=== PATIENT | male | born 1975 | race African-American/Black ===

== ENCOUNTER 2018-12-02 08:38 | Observation (INO) ==
[2018-12-02 09:15] LABS: Basophils # 0.1 10*3/uL (0.0-0.2); Basophils % 0.8 % (0.0-0.8); Eosinophils % 0.2 % (0.00-10.9); Hemoglobin 14.7 GM/DL (14.0-18.0); Immature Granulocytes % 0.3 %; Immature Granulocytes Absolute 0.02 #; Lymphocytes # 1.7 10*3/uL (1.4-4.0); Lymphocytes % 28.2 % (21.2-54.2); Mean Corpuscular HGB Conc 33.4 GM/DL (32-36); Mean Corpuscular Volume 90.7 FL (87-102); Mean Platelet Volume 10.1 FL (9.6-12.0); Monocytes % 9.7 % (1.7-12.7); Neutrophils % 60.8 % (38.7-73.9); Platelet Count 208 T/CUMM (130-400); Red Blood Count 4.85 MC/CUMM (3.8-5.5); Red Cell Distribution Width 13.3 % (9.3-17.3)
[2018-12-02] MEDS ORDERED: ONDANSETRON 4 MG/2 ML VIAL IV STA (09:20)
[2018-12-02] MEDS ORDERED: ASPIRIN 325 MG TABLET PO STA ×2 (09:20→11:34)
[2018-12-02] MEDS ORDERED: hydrALAZINE 20 MG/1 ML VIAL IV STA (09:20)
[2018-12-02] MEDS ORDERED: NITROGLYCERIN 2% OINT 1 INCH/GM PACK TOP STA (09:20)
[2018-12-02] MEDS ORDERED: MORPHINE 4 MG/1 ML VIAL IV STA (09:20)
[2018-12-02 09:27] LABS: INR 0.9; Partial Thromboplastin Time 29.4 SECS (0-40)
[2018-12-02 09:34] LABS: Albumin 4.2 G/DL (3.4-5.0); Bilirubin,Total 0.6 MG/DL (0.2-1.0); Calcium 8.6 MG/DL (8.5-10.1); Osmolality,Calculated 275.5 MOS/KG (273-304); Total Protein 8.2 G/DL (6.4-8.3)
[2018-12-02 09:52] LABS: Barbiturates Screen,Urine Negative (Negative); Benzodiazepines Screen,Urine Negative (Negative); Cannabinoid Screen,Urine Negative (Negative); Opiate Screen,Urine Negative (Negative); Phencyclidine Screen,Urine Negative (Negative)
[2018-12-02 10:01] LABS: Apearance,Urine CLEAR (Clear); Bilirubin,Urine Negative (Negative); Blood, Urine Small mg/dL (Negative); Glucose,Urine (UA) Negative (Negative); Ketones,Urine 20 mg/dL (Negative); Mucus,Urine Occasional /LPF (Occasional); Nitrite,Urine Negative (Negative); Protein,Urine 30 MG/DL; RBC,Urine <1 /HPF (0-4); Urine Color Yellow (Yellow); Urine Specific Gravity 1.026 (1.001-1.035); Urine Urobilinogen < 2.0 EU/DL (0.2-1.0); WBC,Urine 1 /HPF (0-6)
[2018-12-02] MEDS ORDERED: MAGNESIUM HYDROXIDE SUSP 30 ML UDCUP PO PRN (11:34)
[2018-12-02] MEDS ORDERED: MAGNESIUM SULF RIDER 2 GM in PREMIX 1 EACH IV PRN (11:34)
[2018-12-02] MEDS ORDERED: MAGNESIUM SULF RIDER 4 GM in PREMIX 1 EACH IV PRN (11:34)
[2018-12-02] MEDS ORDERED: ALUM/MAG/SIMETH/LIDO VISC 1:1 30 ML BOTTLE PO PRN (11:34)
[2018-12-02] MEDS ORDERED: LORazepam 1 MG TABLET PO PRN (12:22)
[2018-12-02] MEDS ORDERED: hydrALAZINE 20 MG/1 ML VIAL IV PRN (12:24)
[2018-12-02] MEDS ORDERED: FLUCONAZOLE 200 MG TABLET PO STA (12:32)
[2018-12-02] MEDS: HEPARIN 5,000 UNIT/1 ML VIAL SUBCUT SCH ×2 (14:00→21:30)
[2018-12-02] MEDS: MORPHINE 4 MG/1 ML VIAL IV PRN ×3 (15:42→23:21)
[2018-12-02] MEDS ORDERED: NICOTINE 21 MG/24 HR PATCH TRANSDERM ONE (15:49)
[2018-12-02] MEDS: CARVEDILOL 6.25 MG TABLET PO SCH (16:12)
[2018-12-02] MEDS ORDERED: hydrALAZINE 25 MG TABLET PO ONE (16:43)
[2018-12-02] MEDS ORDERED: ASPIRIN CHEW 81 MG TABLET PO ONE (18:24)
[2018-12-02] MEDS ORDERED: NITROGLYCERIN 2% OINT 1 INCH/GM PACK TOP ONE (18:25)
[2018-12-02] MEDS ORDERED: niCARdipine INJ 25 MG in SODIUM CHLORIDE 0.9% 240 ML IV PRN (18:32)
[2018-12-02] MEDS: POTASSIUM CHLORIDE 20 MEQ TABLET PO PRN ×2 (19:03→21:30)
[2018-12-02] MEDS: ACETAMINOPHEN 325 MG TABLET PO PRN (19:45)
[2018-12-02] MEDS: ATORVASTATIN 20 MG TABLET PO SCH (21:30)
[2018-12-02] MEDS: FAMOTIDINE 20 MG TABLET PO SCH (21:30)
[2018-12-02] MEDS: hydrALAZINE 25 MG TABLET PO SCH (21:30)
[2018-12-02] MEDS ORDERED: KETOROLAC 30 MG/1 ML VIAL IV ONE (23:34)
[2018-12-03] MEDS: MORPHINE 4 MG/1 ML VIAL IV PRN ×2 (01:55→06:06)
[2018-12-03] MEDS: POTASSIUM CHLORIDE 20 MEQ TABLET PO PRN ×2 (01:55→06:06)
[2018-12-03] MEDS ORDERED: diphenhydrAMINE CAP 50 MG CAPSULE PO ONE (02:25)
[2018-12-03] MEDS: HEPARIN 5,000 UNIT/1 ML VIAL SUBCUT SCH ×3 (05:33→20:22)
[2018-12-03 05:40] LABS: Risk Ratio 2.48; VLDL CHOLESTEROL 16.2 MG/DL
[2018-12-03] MEDS: MULTIVITAMIN (CENTRUM) TABLET PO SCH (08:56)
[2018-12-03] MEDS: FOLIC ACID 1 MG TABLET PO SCH (08:56)
[2018-12-03] MEDS: CARVEDILOL 6.25 MG TABLET PO SCH ×2 (08:56→16:54)
[2018-12-03] MEDS: ASPIRIN EC 81 MG TABLET PO SCH (08:56)
[2018-12-03] MEDS: hydrALAZINE 25 MG TABLET PO SCH ×3 (08:56→20:21)
[2018-12-03] MEDS: NICOTINE 21 MG/24 HR PATCH TRANSDERM SCH (08:56)
[2018-12-03] MEDS: FAMOTIDINE 20 MG TABLET PO SCH ×2 (08:57→20:21)
[2018-12-03] MEDS: THIAMINE 100 MG TABLET PO SCH (08:57)
[2018-12-03] MEDS: NITROGLYCERIN 2% OINT 1 INCH/GM PACK TOP SCH ×2 (09:21→20:22)
[2018-12-03] MEDS: ONDANSETRON 4 MG/2 ML VIAL IV PRN (10:51)
[2018-12-03] MEDS: ACETAMINOPHEN 325 MG TABLET PO PRN (15:11)
[2018-12-03] MEDS ORDERED: diphenhydrAMINE CAP 25 MG CAPSULE PO ONE (19:48)
[2018-12-03] MEDS: ATORVASTATIN 20 MG TABLET PO SCH (20:21)
[2018-12-04] MEDS: ACETAMINOPHEN 325 MG TABLET PO PRN (02:56)
[2018-12-04] MEDS: HEPARIN 5,000 UNIT/1 ML VIAL SUBCUT SCH (04:26)
[2018-12-04 07:16] VITALS: BP 141/87
[2018-12-04] MEDS: NICOTINE 21 MG/24 HR PATCH TRANSDERM SCH (09:07)
[2018-12-04] MEDS: MULTIVITAMIN (CENTRUM) TABLET PO SCH (09:08)
[2018-12-04] MEDS: FAMOTIDINE 20 MG TABLET PO SCH (09:08)
[2018-12-04] MEDS: FOLIC ACID 1 MG TABLET PO SCH (09:08)
[2018-12-04] MEDS: THIAMINE 100 MG TABLET PO SCH (09:08)
[2018-12-04] MEDS: CARVEDILOL 6.25 MG TABLET PO SCH (09:08)
[2018-12-04] MEDS: hydrALAZINE 25 MG TABLET PO SCH (09:08)
[2018-12-04] MEDS: ASPIRIN EC 81 MG TABLET PO SCH (09:08)
[2018-12-04] MEDS: NITROGLYCERIN 2% OINT 1 INCH/GM PACK TOP SCH (09:08)
[2018-12-04] MEDS: ONDANSETRON 4 MG/2 ML VIAL IV PRN (10:27)
== END 2018-12-04 10:58 | disposition home or self-care (01) ==
LOC: N.EDINP 08:38 → N.ED 08:38 → SUATTDRO 11:35 → MERGE 11:35 → N.2E 12:59 → N.CC 19:36 → N.2E 12-03 10:34
PROVIDERS: ADMIT Nurse Practitioner; ATTEND Internal Medicine

== ENCOUNTER 2019-07-19 16:23 | Inpatient (IN) ==
[2019-07-19] MEDS ORDERED: ASPIRIN 325 MG TABLET ONE (16:40)
[2019-07-19] MEDS ORDERED: NITROGLYCERIN 2% OINT 1 INCH/GM PACK TOP STA (16:41)
[2019-07-19] MEDS ORDERED: ASPIRIN 325 MG TABLET PO STA (16:41)
[2019-07-19] MEDS ORDERED: ONDANSETRON 4 MG/2 ML VIAL IV STA (16:41)
[2019-07-19] MEDS: NITROGLYCERIN SL 0.4 MG TABLET SL PRN ×2 (16:44→18:14)
[2019-07-19 16:55] LABS: Basophils % 0.8 % (0.0-0.8); Eosinophils % 0.2 % (0.00-10.9); Hematocrit 42.5 VOL% (42.0-52.0); Hemoglobin 14.4 GM/DL (14.0-18.0); Immature Granulocytes % 0.2 %; Immature Granulocytes Absolute 0.01 #; Lymphocytes # 1.4 10*3/uL (1.4-4.0); Lymphocytes % 27.3 % (21.2-54.2); Mean Corpuscular HGB Conc 33.9 GM/DL (32-36); Mean Corpuscular Volume 91.2 FL (87-102); Mean Platelet Volume 10.2 FL (9.6-12.0); Monocytes % 9.9 % (1.7-12.7); Neutrophils % 61.6 % (38.7-73.9); Platelet Count 182 T/CUMM (130-400); Red Blood Count 4.66 MC/CUMM (3.8-5.5); Red Cell Distribution Width 13.6 % (9.3-17.3); White Blood Count 5.2 T/CUMM (4-12)
[2019-07-19 17:17] LABS: Albumin 4.2 G/DL (3.4-5.0); Bilirubin,Total 0.5 MG/DL (0.2-1.0); Calcium 8.8 MG/DL (8.5-10.1); Osmolality,Calculated 279.3 MOS/KG (273-304); Total Protein 8.6 G/DL (6.4-8.3)
[2019-07-19 17:18] LABS: Apearance,Urine CLEAR (Clear); Bilirubin,Urine Negative (Negative); Blood, Urine Negative (Negative); Glucose,Urine (UA) Negative (Negative); Hyaline Casts,Urine 3 /LPF (0-3); Ketones,Urine 20 mg/dL (Negative); Mucus,Urine Occasional /LPF (Occasional); Nitrite,Urine Negative (Negative); Protein,Urine 30 MG/DL; Squamous Epithelial Cell,Urine Occasional /HPF (0-10); Urine Color Yellow (Yellow); Urine Specific Gravity 1.021 (1.001-1.035); Urine Urobilinogen < 2.0 EU/DL (0.2-1.0)
[2019-07-19] MEDS ORDERED: amLODIPine 5 MG TABLET PO STA (17:42)
[2019-07-19 18:07] LABS: Barbiturates Screen,Urine Negative (Negative); Benzodiazepines Screen,Urine Negative (Negative); Cannabinoid Screen,Urine Negative (Negative); Opiate Screen,Urine Negative (Negative); Phencyclidine Screen,Urine Negative (Negative)
[2019-07-19] MEDS ORDERED: cloNIDine 0.1 MG TABLET PO PRN (18:55)
[2019-07-19] MEDS ORDERED: ONDANSETRON 4 MG/2 ML VIAL IV PRN (20:18)
[2019-07-19] MEDS ORDERED: INFLUENZA VIRUS VACCINE 0.5 ML SYRINGE IM ONE (20:23)
[2019-07-19] MEDS ORDERED: ENOXAPARIN 40 MG/0.4 ML SYRINGE SUBCUT SCH (21:00)
[2019-07-19] MEDS: CHLORTHALIDONE 25 MG TABLET PO SCH (22:31)
[2019-07-19] MEDS: carvediloL 12.5 MG TABLET PO SCH (22:31)
[2019-07-19] MEDS: ALUMINUM/MAGNES/SIMETH MAX STR 30 ML UDCUP PO SCH (22:32)
[2019-07-19] MEDS: MAGNESIUM SULF RIDER 4 GM in PREMIX 1 EACH IV SCH (22:36)
[2019-07-20] MEDS: ALUMINUM/MAGNES/SIMETH MAX STR 30 ML UDCUP PO SCH ×4 (01:40→13:38)
[2019-07-20] MEDS ORDERED: ACETAMINOPHEN 500 MG TABLET PO ONE (02:43)
[2019-07-20] MEDS: MAGNESIUM SULF RIDER 4 GM in PREMIX 1 EACH IV SCH (03:36)
[2019-07-20 06:47] LABS: Osmolality,Calculated 270.8 MOS/KG (273-304)
[2019-07-20] MEDS ORDERED: amLODIPine 10 MG TABLET PO SCH (09:00)
[2019-07-20] MEDS ORDERED: PANTOPRAZOLE 40 MG TABLET PO SCH (09:00)
[2019-07-20] MEDS: CHLORTHALIDONE 25 MG TABLET PO SCH (09:34)
[2019-07-20] MEDS: carvediloL 12.5 MG TABLET PO SCH (09:37)
[2019-07-20] MEDS ORDERED: POTASSIUM CHLORIDE 20 MEQ TABLET PO ONE (12:35)
[2019-07-20 12:47] VITALS: BP 157/108
== END 2019-07-20 15:00 | disposition home or self-care (01) | DRG 305 ==
LOC: N.ED 16:23 → N.EDINP 18:55 → N.TELES 19:48
PROVIDERS: ADMIT Internal Medicine; ATTEND Internal Medicine

== ENCOUNTER 2020-08-08 22:38 | Observation (INO) ==
[2020-08-08] MEDS ORDERED: NITROGLYCERIN 2% OINT 1 INCH/GM PACK TOP STA (23:10)
[2020-08-08] MEDS ORDERED: ONDANSETRON 4 MG/2 ML VIAL IV STA (23:10)
[2020-08-08] MEDS ORDERED: ASPIRIN 325 MG TABLET PO STA (23:10)
[2020-08-08] MEDS ORDERED: ALUM/MAG/SIMETH/LIDO VISC 1:1 30 ML BOTTLE PO STA (23:10)
[2020-08-08] MEDS ORDERED: MORPHINE 4 MG/1 ML VIAL IV STA (23:10)
[2020-08-08] MEDS ORDERED: hydrALAZINE 20 MG/1 ML VIAL IV STA (23:12)
[2020-08-08 23:14] LABS: Basophils # 0.1 10*3/uL (0.0-0.2); Basophils % 1.2 % (0.0-0.8); Eosinophils % 0.2 % (0.00-10.9); Hematocrit 43.6 VOL% (42.0-52.0); Hemoglobin 15.3 GM/DL (14.0-18.0); Immature Granulocytes % 0.7 %; Immature Granulocytes Absolute 0.04 #; Lymphocytes # 1.6 10*3/uL (1.4-4.0); Lymphocytes % 28.8 % (21.2-54.2); Mean Corpuscular HGB Conc 35.1 GM/DL (32-36); Mean Corpuscular Volume 87.9 FL (87-102); Monocytes % 8.7 % (1.7-12.7); Neutrophils % 60.4 % (38.7-73.9); Platelet Count 240 T/CUMM (130-400); Red Blood Count 4.96 MC/CUMM (3.8-5.5); White Blood Count 5.7 T/CUMM (4-12)
[2020-08-08] MEDS ORDERED: PROMETHAZINE 25 MG/1 ML VIAL IM STA (23:48)
[2020-08-08 23:51] LABS: PT Patient Result 10.3 SECS (9.8-11.9); Partial Thromboplastin Time 28.2 SECS (23.9-33.8)
[2020-08-09] LABS: Alanine Aminotransferase 27 U/L (16-61); Albumin 4.1 G/DL (3.4-5.0); Alkaline Phosphatase 96 U/L (45-117); Aspartate Amino Transferase 20 U/L (0-37); Bilirubin,Total < 0.39 MG/DL (0.2-1.0); Blood Urea Nitrogen 11 MG/DL (7-18); Calcium 8.7 MG/DL (8.5-10.1); Carbon Dioxide 22 MMOL/L (21-32); Estimated Glom Filtration Rate 143 ML/MIN; Glucose 87 MG/DL (74-106); Osmolality,Calculated 274.5 MOS/KG (273-304); Potassium 3.6 MMOL/L (3.5-5.1); Sodium 139 MMOL/L (136-145); Total Protein 8.4 G/DL (6.4-8.3)
[2020-08-09] MEDS ORDERED: hydrALAZINE 20 MG/1 ML VIAL IV STA
[2020-08-09 00:12] LABS: Bilirubin,Urine Negative (Negative); Blood, Urine Negative (Negative); Glucose,Urine (UA) Negative (Negative); Ketones,Urine 5 mg/dL (Negative); Mucus,Urine Many /LPF (Occasional); Nitrite,Urine Negative (Negative); Protein,Urine 100 MG/DL; RBC,Urine 4 /HPF (0-4); Squamous Epithelial Cell,Urine Occasional /HPF (0-10); Urine Appearance CLEAR (Clear); Urine Color Yellow (Yellow); Urine Specific Gravity 1.029 (1.001-1.035); Urine Urobilinogen < 2.0 EU/DL (0.2-1.0); WBC,Urine 4 /HPF (0-6)
[2020-08-09] MEDS ORDERED: MAGNESIUM SULF RIDER 2 GM in PREMIX 1 EACH IV STA (00:12)
[2020-08-09 00:13] LABS: Barbiturates Screen,Urine Negative (Negative); Benzodiazepines Screen,Urine Negative (Negative); Cannabinoid Screen,Urine Negative (Negative); Opiate Screen,Urine Positive (Negative); Phencyclidine Screen,Urine Negative (Negative)
[2020-08-09] MEDS ORDERED: MORPHINE 4 MG/1 ML VIAL IV STA (00:15)
[2020-08-09] MEDS ORDERED: METOPROLOL TARTRATE 5 MG/5 ML VIAL IV STA (00:26)
[2020-08-09] MEDS ORDERED: DEXTROSE 50% 25 GM/50 ML VIAL IV PRN (01:11)
[2020-08-09] MEDS ORDERED: GLUCAGON 1 MG VIAL IM PRN (01:11)
[2020-08-09] MEDS ORDERED: hydrALAZINE 20 MG/1 ML VIAL IV PRN (01:15)
[2020-08-09] MEDS: MORPHINE 4 MG/1 ML VIAL IV PRN ×4 (02:18→22:05)
[2020-08-09 04:49] LABS: Basophils # 0.1 10*3/uL (0.0-0.2); Basophils % 1.2 % (0.0-0.8); Eosinophils % 0.6 % (0.00-10.9); Hematocrit 42.3 VOL% (42.0-52.0); Hemoglobin 14.8 GM/DL (14.0-18.0); Immature Granulocytes % 0.4 %; Immature Granulocytes Absolute 0.02 #; Lymphocytes # 1.9 10*3/uL (1.4-4.0); Lymphocytes % 37.8 % (21.2-54.2); Mean Corpuscular Volume 88.3 FL (87-102); Mean Platelet Volume 10.3 FL (9.6-12.0); Monocytes % 12.7 % (1.7-12.7); Neutrophils % 47.3 % (38.7-73.9); Platelet Count 213 T/CUMM (130-400); Red Blood Count 4.79 MC/CUMM (3.8-5.5)
[2020-08-09 05:18] LABS: Calcium 8.6 MG/DL (8.5-10.1); Osmolality,Calculated 272.8 MOS/KG (273-304); Potassium 3.6 MMOL/L (3.5-5.1); Risk Ratio 2.69; VLDL CHOLESTEROL 13.4 MG/DL
[2020-08-09] MEDS: ENOXAPARIN 40 MG/0.4 ML SYRINGE SUBCUT SCH (06:32)
[2020-08-09] MEDS: PANTOPRAZOLE 40 MG TABLET PO SCH (09:35)
[2020-08-09] MEDS: carvediloL 12.5 MG TABLET PO SCH ×2 (09:35→17:49)
[2020-08-09] MEDS: CHLORTHALIDONE 25 MG TABLET PO SCH (09:35)
[2020-08-09] MEDS: ASPIRIN EC 81 MG TABLET PO SCH (09:35)
[2020-08-09] MEDS: amLODIPine 10 MG TABLET PO SCH (09:35)
[2020-08-09] MEDS ORDERED: diphenhydrAMINE CAP 25 MG CAPSULE PO ONE (12:03)
[2020-08-09] MEDS: predniSONE 20 MG TABLET PO SCH ×2 (12:39→18:45)
[2020-08-09] MEDS ORDERED: diphenhydrAMINE 50 MG/1 ML VIAL IV ONE (18:00)
[2020-08-10] MEDS ORDERED: NICOTINE 21 MG/24 HR PATCH TRANSDERM PRN (00:28)
[2020-08-10] MEDS: predniSONE 20 MG TABLET PO SCH ×3 (00:50→12:17)
[2020-08-10] MEDS: MORPHINE 4 MG/1 ML VIAL IV PRN ×4 (01:59→21:54)
[2020-08-10 05:46] LABS: Hematocrit 46.2 VOL% (42.0-52.0); Hemoglobin 16.3 GM/DL (14.0-18.0); Immature Granulocytes % 0.3 %; Immature Granulocytes Absolute 0.02 #; Lymphocytes # 0.7 10*3/uL (1.4-4.0); Lymphocytes % 12.7 % (21.2-54.2); Mean Corpuscular HGB Conc 35.3 GM/DL (32-36); Mean Corpuscular Volume 86.8 FL (87-102); Mean Platelet Volume 10.5 FL (9.6-12.0); Monocytes % 2.8 % (1.7-12.7); Neutrophils % 84.2 % (38.7-73.9); Platelet Count 257 T/CUMM (130-400); Red Blood Count 5.32 MC/CUMM (3.8-5.5); Red Cell Distribution Width 13.2 % (9.3-17.3); White Blood Count 5.7 T/CUMM (4-12)
[2020-08-10 06:12] LABS: Calcium 9.1 MG/DL (8.5-10.1); Osmolality,Calculated 265.7 MOS/KG (273-304)
[2020-08-10] MEDS: ENOXAPARIN 40 MG/0.4 ML SYRINGE SUBCUT SCH (06:36)
[2020-08-10] MEDS: CHLORTHALIDONE 25 MG TABLET PO SCH (08:35)
[2020-08-10] MEDS: amLODIPine 10 MG TABLET PO SCH (08:35)
[2020-08-10] MEDS: carvediloL 12.5 MG TABLET PO SCH (08:36)
[2020-08-10] MEDS: ASPIRIN EC 81 MG TABLET PO SCH (08:36)
[2020-08-10] MEDS: PANTOPRAZOLE 40 MG TABLET PO SCH (08:36)
[2020-08-10] MEDS: carvediloL 25 MG TABLET PO SCH (16:10)
[2020-08-10] MEDS ORDERED: ACETAMINOPHEN 325 MG TABLET PO PRN (18:51)
[2020-08-11] MEDS: MORPHINE 4 MG/1 ML VIAL IV PRN (03:07)
[2020-08-11 05:45] LABS: Basophils % 0.2 % (0.0-0.8); Eosinophils % 0.2 % (0.00-10.9); Hematocrit 46.7 VOL% (42.0-52.0); Hemoglobin 15.5 GM/DL (14.0-18.0); Immature Granulocytes % 0.4 %; Immature Granulocytes Absolute 0.04 #; Lymphocytes # 2.3 10*3/uL (1.4-4.0); Lymphocytes % 23.5 % (21.2-54.2); Mean Corpuscular HGB Conc 33.2 GM/DL (32-36); Mean Corpuscular Volume 91.2 FL (87-102); Mean Platelet Volume 10.7 FL (9.6-12.0); Monocytes % 9.5 % (1.7-12.7); Neutrophils % 66.2 % (38.7-73.9); Platelet Count 231 T/CUMM (130-400); Red Blood Count 5.12 MC/CUMM (3.8-5.5); Red Cell Distribution Width 13.2 % (9.3-17.3); White Blood Count 9.7 T/CUMM (4-12)
[2020-08-11] MEDS: ENOXAPARIN 40 MG/0.4 ML SYRINGE SUBCUT SCH (05:55)
[2020-08-11 06:06] LABS: Platelet Estimate Adequate
[2020-08-11 06:10] LABS: Calcium 8.7 MG/DL (8.5-10.1); Potassium 3.5 MMOL/L (3.5-5.1)
[2020-08-11] MEDS ORDERED: ALUM/MAG/SIMETH/LIDO VISC 1:1 30 ML BOTTLE PO ONE (09:33)
[2020-08-11] MEDS: ASPIRIN EC 81 MG TABLET PO SCH (10:54)
[2020-08-11] MEDS: CHLORTHALIDONE 25 MG TABLET PO SCH (10:55)
[2020-08-11] MEDS: PANTOPRAZOLE 40 MG TABLET PO SCH (10:55)
[2020-08-11] MEDS: amLODIPine 10 MG TABLET PO SCH (10:55)
[2020-08-11] MEDS: carvediloL 25 MG TABLET PO SCH (10:55)
[2020-08-11 12:31] VITALS: BP 131/79
== END 2020-08-11 16:16 | disposition home or self-care (01) ==
LOC: EDBD → EDUNIT# → N.ED 22:38 → N.EDINP 22:38 → N.TELES 08-09 18:15
PROVIDERS: ADMIT Internal Medicine; ATTEND Internal Medicine

== ENCOUNTER 2021-01-31 11:39 | Observation (INO) ==
[2021-01-31 12:08] LABS: Basophils # 0.1 10*3/uL (0.0-0.2); Basophils % 0.9 % (0.0-0.8); Hematocrit 44.8 VOL% (42.0-52.0); Hemoglobin 15.2 GM/DL (14.0-18.0); Immature Granulocytes % 0.4 %; Immature Granulocytes Absolute 0.02 #; Lymphocytes # 1.1 10*3/uL (1.4-4.0); Lymphocytes % 20.1 % (21.2-54.2); Mean Corpuscular HGB Conc 33.9 GM/DL (32-36); Mean Corpuscular Volume 91.4 FL (87-102); Mean Platelet Volume 10.1 FL (9.6-12.0); Monocytes % 10.2 % (1.7-12.7); Neutrophils % 68.4 % (38.7-73.9); Platelet Count 198 T/CUMM (130-400); Red Cell Distribution Width 13.6 % (9.3-17.3); White Blood Count 5.5 T/CUMM (4-12)
[2021-01-31 12:19] LABS: Albumin 4.4 G/DL (3.4-5.0); Bilirubin,Total 0.5 MG/DL (0.20-1.00); Calcium 8.8 MG/DL (8.5-10.1); Osmolality,Calculated 274.5 MOS/KG (273-304); Potassium 3.9 MMOL/L (3.5-5.1); Total Protein 8.5 G/DL (6.4-8.2)
[2021-01-31] MEDS ORDERED: ASPIRIN 325 MG TABLET PO STA (12:29)
[2021-01-31] MEDS: NITROGLYCERIN SL 0.4 MG TABLET SL PRN ×2 (12:43→17:23)
[2021-01-31] MEDS ORDERED: hydrALAZINE 20 MG/1 ML VIAL IV PRN (14:38)
[2021-01-31] MEDS ORDERED: GLUCAGON 1 MG VIAL IM PRN (14:38)
[2021-01-31] MEDS ORDERED: ALUM/MAG/SIMETH/LIDO VISC 1:1 30 ML BOTTLE PO PRN (14:38)
[2021-01-31] MEDS ORDERED: DEXTROSE 50% 25 GM/50 ML VIAL IV PRN (14:38)
[2021-01-31 14:58] LABS: Barbiturates Screen,Urine Negative (Negative); Benzodiazepines Screen,Urine Negative (Negative); Cannabinoid Screen,Urine Negative (Negative); Opiate Screen,Urine Negative (Negative); Phencyclidine Screen,Urine Negative (Negative)
[2021-01-31] MEDS ORDERED: ENOXAPARIN 40 MG/0.4 ML SYRINGE SUBCUT SCH (15:00)
[2021-01-31] MEDS ORDERED: ONDANSETRON 4 MG/2 ML VIAL IV PRN (15:46)
[2021-01-31] MEDS: MORPHINE 2 MG/1 ML SYRINGE IV PRN (21:19)
[2021-01-31] MEDS ORDERED: NICOTINE 21 MG/24 HR PATCH TRANSDERM ONE (23:29)
[2021-01-31] MEDS: NICOTINE 21 MG/24 HR PATCH TRANSDERM SCH (23:32)
[2021-02-01] MEDS: MORPHINE 2 MG/1 ML SYRINGE IV PRN (02:40)
[2021-02-01 04:32] LABS: Basophils % 0.6 % (0.0-0.8); Eosinophils # 0.1 10*3/uL (0.0-0.87); Eosinophils % 2.4 % (0.00-10.9); Hematocrit 43.5 VOL% (42.0-52.0); Hemoglobin 14.8 GM/DL (14.0-18.0); Lymphocytes # 1.5 10*3/uL (1.4-4.0); Lymphocytes % 45.3 % (21.2-54.2); Mean Corpuscular Volume 91.6 FL (87-102); Mean Platelet Volume 10.7 FL (9.6-12.0); Monocytes % 19.9 % (1.7-12.7); Neutrophils % 31.8 % (38.7-73.9); Platelet Count 196 T/CUMM (130-400); Red Blood Count 4.75 MC/CUMM (3.8-5.5); Red Cell Distribution Width 13.2 % (9.3-17.3); White Blood Count 3.3 T/CUMM (4-12)
[2021-02-01 05:48] LABS: Eosinophils 3 % (0-10); Lymphocytes 50 % (20-55); Segmented Neutrophils 36 % (50-85); Total Cells Counted 100
[2021-02-01 05:50] LABS: Hypochromasia 1+; Microcytosis 1+; Platelet Estimate Adequate
[2021-02-01 05:51] LABS: Atypical Lymphocytes Few
[2021-02-01 07:51] LABS: Albumin 3.9 G/DL (3.4-5.0); Bilirubin,Total 0.6 MG/DL (0.20-1.00); Calcium 9.1 MG/DL (8.5-10.1); Osmolality,Calculated 263.4 MOS/KG (273-304); Potassium 3.8 MMOL/L (3.5-5.1); Risk Ratio 2.23; Total Protein 8.3 G/DL (6.4-8.2); VLDL Cholesterol 16.2 MG/DL
[2021-02-01] MEDS ORDERED: ASPIRIN EC 325 MG TABLET PO SCH (09:00)
[2021-02-01] MEDS ORDERED: PANTOPRAZOLE 40 MG TABLET PO SCH (09:00)
[2021-02-01] MEDS: NICOTINE 21 MG/24 HR PATCH TRANSDERM SCH (09:17)
[2021-02-01] MEDS ORDERED: AZITHROMYCIN 250 MG TABLET PO ONE (10:03)
[2021-02-01] MEDS ORDERED: amLODIPine 10 MG TABLET PO SCH (10:30)
[2021-02-01] MEDS ORDERED: cefTRIAXone 1,000 MG in SODIUM CHLORIDE 0.9% 100 ML IV SCH (10:30)
[2021-02-01 11:39] VITALS: BP 157/89
[2021-02-02] MEDS ORDERED: AZITHROMYCIN 250 MG TABLET PO SCH (09:00)
== END 2021-02-01 11:41 | disposition home or self-care (01) ==
LOC: EDBD → EDUNIT# → N.ED 11:39 → N.EDINP 11:39
PROVIDERS: ADMIT Internal Medicine; ATTEND Internal Medicine

== ENCOUNTER 2021-07-13 12:36 | Inpatient (IN) ==
[2021-07-13] MEDS ORDERED: DILTIAZEM 50 MG/10 ML VIAL IV STA ×2 (13:25→15:00)
[2021-07-13 13:31] LABS: Basophils # 0.1 10*3/uL (0.0-0.2); Basophils % 1.2 % (0.0-0.8); Eosinophils % 0.4 % (0.00-10.9); Hematocrit 47.2 VOL% (42.0-52.0); Hemoglobin 16.3 GM/DL (14.0-18.0); Immature Granulocytes % 0.2 %; Immature Granulocytes Absolute 0.01 #; Lymphocytes # 2.8 10*3/uL (1.4-4.0); Lymphocytes % 53.5 % (21.2-54.2); Mean Corpuscular HGB Conc 34.5 GM/DL (32-36); Mean Corpuscular Volume 88.7 FL (87-102); Mean Platelet Volume 9.9 FL (9.6-12.0); Monocytes % 9.7 % (1.7-12.7); Platelet Count 321 T/CUMM (130-400); Red Blood Count 5.32 MC/CUMM (3.8-5.5); Red Cell Distribution Width 12.6 % (9.3-17.3); White Blood Count 5.1 T/CUMM (4-12)
[2021-07-13] MEDS: DILTIAZEM INJ 100 MG in SODIUM CHLORIDE 0.9% 100 ML IV SCH ×2 (13:32→20:15)
[2021-07-13 14:11] LABS: Albumin 4.7 G/DL (3.4-5.0); Bilirubin,Total 0.4 MG/DL (0.20-1.00); Calcium 9.3 MG/DL (8.5-10.1); Osmolality,Calculated 286.8 MOS/KG (273-304); Potassium 3.5 MMOL/L (3.5-5.1); Thyroid Stimulating Hormone 1.66 uIU/ml (0.358-3.74); Total Protein 9.1 G/DL (6.4-8.2)
[2021-07-13 14:17] LABS: Barbiturates Screen,Urine Negative (Negative); Benzodiazepines Screen,Urine Negative (Negative); Cannabinoid Screen,Urine Negative (Negative); Opiate Screen,Urine Negative (Negative); Phencyclidine Screen,Urine Negative (Negative)
[2021-07-13 14:54] LABS: INR 0.9; PT Patient Result 10.5 SECS (10.5-12.0); Partial Thromboplastin Time 27.4 SECS (23.8-32.1)
[2021-07-13] MEDS ORDERED: THIAMINE INJ 100 MG, FOLIC ACID INJ 1 MG, MAGNESIUM SULF INJ 2 GM, MULTIVITAMIN INJ 10 ... IV ONE (15:14)
[2021-07-13] MEDS ORDERED: LORazepam 2 MG/1 ML VIAL IV STA (15:14)
[2021-07-13] MEDS ORDERED: CALCIUM CARBONATE CHEW 500 MG TABLET PO PRN (15:15)
[2021-07-13] MEDS ORDERED: SIMETHICONE CHEW 125 MG TABLET PO PRN (15:15)
[2021-07-13] MEDS ORDERED: ONDANSETRON 4 MG/2 ML VIAL IV PRN (15:15)
[2021-07-13] MEDS ORDERED: DOCUSATE SODIUM 100 MG CAPSULE PO PRN (15:15)
[2021-07-13] MEDS ORDERED: GLUCAGON 1 MG VIAL IM PRN (15:15)
[2021-07-13] MEDS ORDERED: ONDANSETRON 4 MG/2 ML VIAL IV STA (15:23)
[2021-07-13] MEDS ORDERED: LABETALOL 20 MG/4 ML SYRINGE IV STA ×2 (15:23→15:25)
[2021-07-13] MEDS ORDERED: DEXTROSE 50% 25 GM/50 ML SYRINGE IV PRN (15:27)
[2021-07-13] MEDS ORDERED: THIAMINE INJ 100 MG, FOLIC ACID INJ 1 MG, MAGNESIUM SULF INJ 2 GM, MULTIVITAMIN INJ 10 ... IV SCH (15:30)
[2021-07-13] MEDS: PANTOPRAZOLE 40 MG TABLET PO SCH (16:24)
[2021-07-13] MEDS: ENOXAPARIN 80 MG/0.8 ML SYRINGE SUBCUT SCH (16:24)
[2021-07-13 19:14] LABS: Lymphocytes 61 % (20-55); Microcytosis 1+; Platelet Estimate Normal; Reactive Lymphocytes 2+; Segmented Neutrophils 33 % (50-85); Total Cells Counted 100
[2021-07-13] MEDS ORDERED: chlordiazePOXIDE 25 MG CAPSULE PO SCH (21:00)
[2021-07-13] MEDS: LORazepam 1 MG TABLET PO SCH (21:15)
[2021-07-13] MEDS: hydrALAZINE 20 MG/1 ML VIAL IV PRN (21:20)
[2021-07-14] MEDS: hydrALAZINE 20 MG/1 ML VIAL IV PRN ×2 (00:44→23:09)
[2021-07-14] MEDS: ALPRAZolam 0.5 MG TABLET PO PRN ×2 (01:14→20:31)
[2021-07-14] MEDS: ACETAMINOPHEN 325 MG TABLET PO PRN (03:29)
[2021-07-14] MEDS: ENOXAPARIN 80 MG/0.8 ML SYRINGE SUBCUT SCH (03:31)
[2021-07-14 05:02] LABS: Basophils % 0.8 % (0.0-0.8); Eosinophils # 0.1 10*3/uL (0.0-0.87); Eosinophils % 1.4 % (0.00-10.9); Hemoglobin 14.2 GM/DL (14.0-18.0); Immature Granulocytes % 0.4 %; Immature Granulocytes Absolute 0.02 #; Lymphocytes # 1.6 10*3/uL (1.4-4.0); Lymphocytes % 32.2 % (21.2-54.2); Mean Corpuscular HGB Conc 33.8 GM/DL (32-36); Mean Corpuscular Volume 90.7 FL (87-102); Mean Platelet Volume 10.3 FL (9.6-12.0); Monocytes % 15.3 % (1.7-12.7); Neutrophils % 49.9 % (38.7-73.9); Platelet Count 245 T/CUMM (130-400); Red Blood Count 4.63 MC/CUMM (3.8-5.5); Red Cell Distribution Width 12.6 % (9.3-17.3); White Blood Count 4.9 T/CUMM (4-12)
[2021-07-14 05:31] LABS: Albumin 3.6 G/DL (3.4-5.0); Bilirubin,Total 1.2 MG/DL (0.20-1.00); Calcium 8.5 MG/DL (8.5-10.1); Osmolality,Calculated 275.7 MOS/KG (273-304); Potassium 3.1 MMOL/L (3.5-5.1); Risk Ratio 3.48; Total Protein 7.4 G/DL (6.4-8.2); VLDL Cholesterol 69.6 MG/DL
[2021-07-14] MEDS ORDERED: LORazepam 2 MG/1 ML VIAL IV ONE ×2 (05:49)
[2021-07-14] MEDS: LORazepam 1 MG TABLET PO SCH ×3 (08:06→20:31)
[2021-07-14] MEDS: PANTOPRAZOLE 40 MG TABLET PO SCH (08:06)
[2021-07-14] MEDS: DILTIAZEM INJ 100 MG in SODIUM CHLORIDE 0.9% 100 ML IV SCH ×2 (08:09→15:57)
[2021-07-14] MEDS ORDERED: POTASSIUM CHLORIDE 20 MEQ TABLET PO ONE (09:41)
[2021-07-14] MEDS: NICOTINE 21 MG/24 HR PATCH TRANSDERM SCH (11:13)
[2021-07-14] MEDS: METOPROLOL TARTRATE 25 MG TABLET PO SCH ×2 (14:28→20:31)
[2021-07-14] MEDS ORDERED: THIAMINE INJ 100 MG, FOLIC ACID INJ 1 MG, MAGNESIUM SULF INJ 2 GM, MULTIVITAMIN INJ 10 ... IV SCH (16:00)
[2021-07-14] MEDS ORDERED: amLODIPine 10 MG TABLET PO ONE (17:55)
[2021-07-15] MEDS ORDERED: HALOPERIDOL 5 MG/ML AMP IM ONE (00:25)
[2021-07-15] MEDS: ALPRAZolam 0.5 MG TABLET PO PRN (01:38)
[2021-07-15] MEDS: ACETAMINOPHEN 325 MG TABLET PO PRN (01:39)
[2021-07-15 06:37] LABS: Calcium 8.9 MG/DL (8.5-10.1); Osmolality,Calculated 275.7 MOS/KG (273-304); Potassium 3.7 MMOL/L (3.5-5.1)
[2021-07-15 08:23] VITALS: BP 159/89
[2021-07-15] MEDS: METOPROLOL TARTRATE 25 MG TABLET PO SCH (08:52)
[2021-07-15] MEDS: PANTOPRAZOLE 40 MG TABLET PO SCH (08:52)
[2021-07-15] MEDS: NICOTINE 21 MG/24 HR PATCH TRANSDERM SCH (08:53)
[2021-07-15] MEDS ORDERED: amLODIPine 10 MG TABLET PO SCH (09:00)
[2021-07-15] MEDS ORDERED: ENOXAPARIN 40 MG/0.4 ML SYRINGE SUBCUT SCH (09:00)
[2021-07-15] MEDS: LORazepam 1 MG TABLET PO SCH (11:34)
== END 2021-07-15 13:08 | disposition home or self-care (01) | DRG 305 ==
LOC: N.ED 12:36 → N.TELES 15:15 → SUATTDRO 15:15 → N.TELES 22:00
PROVIDERS: ADMIT Internal Medicine; ATTEND Hospitalist

== ENCOUNTER 2021-10-29 09:04 | Inpatient (IN) ==
[2021-10-29] MEDS ORDERED: SODIUM CHLORIDE 0.9% 1,000 ML IV STA (09:24)
[2021-10-29] MEDS ORDERED: PANTOPRAZOLE 40 MG VIAL IV STA (09:24)
[2021-10-29] MEDS ORDERED: LABETALOL 20 MG/4 ML SYRINGE IV STA (09:57)
[2021-10-29 10:22] LABS: Basophils % 0.1 % (0.0-0.8); Hematocrit 42.9 VOL% (42.0-52.0); Hemoglobin 14.3 GM/DL (14.0-18.0); Immature Granulocytes % 0.6 %; Immature Granulocytes Absolute 0.04 #; Lymphocytes % 13.7 % (21.2-54.2); Mean Corpuscular HGB Conc 33.3 GM/DL (32-36); Mean Corpuscular Volume 89.9 FL (87-102); Mean Platelet Volume 10.2 FL (9.6-12.0); Monocytes % 10.5 % (1.7-12.7); Neutrophils % 75.1 % (38.7-73.9); Platelet Count 248 T/CUMM (130-400); Red Blood Count 4.77 MC/CUMM (3.8-5.5); Red Cell Distribution Width 14.3 % (9.3-17.3); White Blood Count 7.2 T/CUMM (4-12)
[2021-10-29 10:32] LABS: PT Patient Result 10.9 SECS (10.5-12.0)
[2021-10-29] MEDS ORDERED: HYDROmorphone 1 MG/1 ML SYRINGE IV STA ×3 (10:46→13:30)
[2021-10-29] MEDS ORDERED: ONDANSETRON 4 MG/2 ML VIAL IV ONE (10:46)
[2021-10-29 10:48] LABS: Albumin 4.1 G/DL (3.4-5.0); Bilirubin,Total 0.5 MG/DL (0.20-1.00); Calcium 9.1 MG/DL (8.5-10.1); Osmolality,Calculated 275.5 MOS/KG (273-304); Potassium 4.3 MMOL/L (3.5-5.1); Total Protein 8.6 G/DL (6.4-8.2)
[2021-10-29] MEDS ORDERED: methylPREDNISolone SOD SUC 125 MG/2 ML VIAL ONE (11:11)
[2021-10-29] MEDS ORDERED: diphenhydrAMINE 50 MG/1 ML VIAL ONE (11:11)
[2021-10-29] MEDS ORDERED: FAMOTIDINE 20 MG/2 ML VIAL IV ONE (11:13)
[2021-10-29] MEDS ORDERED: methylPREDNISolone SOD SUC 125 MG/2 ML VIAL IV STA (11:18)
[2021-10-29] MEDS ORDERED: FAMOTIDINE 20 MG/2 ML VIAL IV STA (11:19)
[2021-10-29] MEDS ORDERED: diphenhydrAMINE 50 MG/1 ML VIAL IV STA (11:19)
[2021-10-29] MEDS ORDERED: hydrALAZINE 20 MG/1 ML VIAL IV STA (11:51)
[2021-10-29] MEDS ORDERED: LABETALOL 100 MG/20 ML VIAL IV STA (12:38)
[2021-10-29] MEDS ORDERED: hydrALAZINE 20 MG/1 ML VIAL IV PRN (13:54)
[2021-10-29] MEDS ORDERED: SODIUM CHLORIDE 0.9% 1,000 ML IV SCH (14:00)
[2021-10-29] MEDS: metroNIDAZOLE INJ 500 MG/100 ML PREMIX IV SCH ×2 (15:00→23:06)
[2021-10-29] MEDS: LEVOFLOXACIN INJ 750 MG/150 ML PREMIX IV SCH (15:00)
[2021-10-29] MEDS: HYDROmorphone 1 MG/1 ML SYRINGE IV PRN ×4 (15:21→23:05)
[2021-10-29] MEDS: PANTOPRAZOLE 40 MG VIAL IV SCH (15:49)
[2021-10-29 16:09] LABS: Hematocrit 42.4 VOL% (42.0-52.0); Hemoglobin 14.1 GM/DL (14.0-18.0)
[2021-10-29] MEDS: ONDANSETRON 4 MG/2 ML VIAL IV PRN ×2 (17:10→23:05)
[2021-10-29] MEDS: LORazepam 2 MG/1 ML VIAL IV PRN (18:22)
[2021-10-29] MEDS: METOPROLOL TARTRATE 25 MG TABLET PO SCH (20:17)
[2021-10-30] MEDS: HYDROmorphone 1 MG/1 ML SYRINGE IV PRN ×5 (02:26→21:19)
[2021-10-30 05:15] LABS: Basophils % 0.1 % (0.0-0.8); Hematocrit 37.8 VOL% (42.0-52.0); Hemoglobin 12.7 GM/DL (14.0-18.0); Immature Granulocytes % 0.8 %; Immature Granulocytes Absolute 0.06 #; Lymphocytes # 0.8 10*3/uL (1.4-4.0); Lymphocytes % 10.9 % (21.2-54.2); Mean Corpuscular HGB Conc 33.6 GM/DL (32-36); Mean Corpuscular Volume 89.4 FL (87-102); Mean Platelet Volume 10.2 FL (9.6-12.0); Monocytes % 10.6 % (1.7-12.7); Neutrophils % 77.6 % (38.7-73.9); Platelet Count 230 T/CUMM (130-400); Red Blood Count 4.23 MC/CUMM (3.8-5.5); Red Cell Distribution Width 14.1 % (9.3-17.3); White Blood Count 7.5 T/CUMM (4-12)
[2021-10-30 05:36] LABS: Albumin 3.1 G/DL (3.4-5.0); Bilirubin,Total 0.7 MG/DL (0.20-1.00); Calcium 8.4 MG/DL (8.5-10.1); Osmolality,Calculated 272.8 MOS/KG (273-304); Potassium 3.7 MMOL/L (3.5-5.1); Total Protein 6.9 G/DL (6.4-8.2)
[2021-10-30] MEDS: metroNIDAZOLE INJ 500 MG/100 ML PREMIX IV SCH ×3 (06:01→22:54)
[2021-10-30 06:34] LABS: Hepatitis B Core IgM Quant 0.07 Index; Hepatitis B Surface Ag Quant < 0.10 Index; Hepatitis B Surface Ag Result Non-Reactive (NonReactive); Hepatitis C Virus Ab Quant 0.07 Index; Hepatitis C Virus Ab Result Non-Reactive (NonReactive)
[2021-10-30] MEDS: LORazepam 2 MG/1 ML VIAL IV PRN (07:48)
[2021-10-30] MEDS: amLODIPine 10 MG TABLET PO SCH (08:06)
[2021-10-30] MEDS: METOPROLOL TARTRATE 25 MG TABLET PO SCH ×2 (08:06→20:29)
[2021-10-30] MEDS: PANTOPRAZOLE 40 MG VIAL IV SCH ×3 (08:06→20:29)
[2021-10-30] MEDS ORDERED: LABETALOL 20 MG/4 ML SYRINGE IV ONE (08:45)
[2021-10-30] MEDS ORDERED: LABETALOL 20 MG/4 ML SYRINGE IV PRN (08:46)
[2021-10-30 09:22] LABS: % Iron Saturation 37.3 % (18-50)
[2021-10-30] MEDS: DEXT 5% NACL 0.45% KCL 20 MEQ 20 MEQ/1,000 ML BAG IV SCH ×2 (09:38→22:53)
[2021-10-30] MEDS: diphenhydrAMINE CAP 25 MG CAPSULE PO PRN ×2 (11:43→19:48)
[2021-10-30] MEDS: ONDANSETRON 4 MG/2 ML VIAL IV PRN (12:49)
[2021-10-30] MEDS: LEVOFLOXACIN INJ 750 MG/150 ML PREMIX IV SCH (15:16)
[2021-10-31] MEDS: ONDANSETRON 4 MG/2 ML VIAL IV PRN ×3 (00:48→18:27)
[2021-10-31] MEDS: HYDROmorphone 1 MG/1 ML SYRINGE IV PRN ×6 (00:48→23:25)
[2021-10-31] MEDS: diphenhydrAMINE CAP 25 MG CAPSULE PO PRN ×4 (01:58→20:17)
[2021-10-31 04:30] LABS: Basophils % 0.2 % (0.0-0.8); Eosinophils % 0.4 % (0.00-10.9); Hematocrit 40.2 VOL% (42.0-52.0); Hemoglobin 13.3 GM/DL (14.0-18.0); Immature Granulocytes % 0.4 %; Immature Granulocytes Absolute 0.02 #; Lymphocytes # 1.5 10*3/uL (1.4-4.0); Lymphocytes % 28.2 % (21.2-54.2); Mean Corpuscular HGB Conc 33.1 GM/DL (32-36); Mean Corpuscular Volume 88.4 FL (87-102); Mean Platelet Volume 10.2 FL (9.6-12.0); Monocytes % 13.4 % (1.7-12.7); Neutrophils % 57.4 % (38.7-73.9); Platelet Count 238 T/CUMM (130-400); Red Blood Count 4.55 MC/CUMM (3.8-5.5); Red Cell Distribution Width 13.5 % (9.3-17.3); White Blood Count 5.4 T/CUMM (4-12)
[2021-10-31 05:03] LABS: Alanine Aminotransferase 407 U/L (16-61); Albumin 3.1 G/DL (3.4-5.0); Alkaline Phosphatase 102 U/L (45-117); Aspartate Amino Transferase 226 U/L (0-37); Bilirubin,Total < 0.39 MG/DL (0.20-1.00); Blood Urea Nitrogen 11 MG/DL (7-18); Calcium 8.4 MG/DL (8.5-10.1); Carbon Dioxide 27 MMOL/L (21-32); Estimated Glom Filtration Rate 112 ML/MIN; Glucose 96 MG/DL (74-106); Osmolality,Calculated 273.7 MOS/KG (273-304); Potassium 3.6 MMOL/L (3.5-5.1); Sodium 138 MMOL/L (136-145); Total Protein 6.7 G/DL (6.4-8.2)
[2021-10-31] MEDS: metroNIDAZOLE INJ 500 MG/100 ML PREMIX IV SCH ×3 (06:27→23:25)
[2021-10-31] MEDS ORDERED: LIDOCAINE 2% 5 ML VIAL ONE (09:29)
[2021-10-31] MEDS ORDERED: propofoL 200 MG/20 ML VIAL IV ONE (09:29)
[2021-10-31 10:06] VITALS: BP 169/112
[2021-10-31] MEDS: METOPROLOL TARTRATE 25 MG TABLET PO SCH ×2 (10:38→20:17)
[2021-10-31] MEDS: amLODIPine 10 MG TABLET PO SCH (10:38)
[2021-10-31] MEDS: PANTOPRAZOLE 40 MG VIAL IV SCH ×2 (10:39→20:16)
[2021-10-31] MEDS: LORazepam 2 MG/1 ML VIAL IV PRN (13:00)
[2021-10-31] MEDS: DEXT 5% NACL 0.45% KCL 20 MEQ 20 MEQ/1,000 ML BAG IV SCH (13:31)
[2021-10-31] MEDS: MECLIZINE 25 MG TABLET PO SCH ×3 (13:33→20:17)
[2021-10-31] MEDS: LEVOFLOXACIN INJ 750 MG/150 ML PREMIX IV SCH (16:19)
[2021-11-01] MEDS: DEXT 5% NACL 0.45% KCL 20 MEQ 20 MEQ/1,000 ML BAG IV SCH ×2 (02:19→14:28)
[2021-11-01] MEDS: HYDROmorphone 1 MG/1 ML SYRINGE IV PRN ×4 (02:20→11:39)
[2021-11-01 05:15] LABS: Basophils % 0.6 % (0.0-0.8); Eosinophils # 0.1 10*3/uL (0.0-0.87); Eosinophils % 2.5 % (0.00-10.9); Hematocrit 43.7 VOL% (42.0-52.0); Hemoglobin 14.6 GM/DL (14.0-18.0); Immature Granulocytes % 0.6 %; Immature Granulocytes Absolute 0.03 #; Mean Corpuscular HGB Conc 33.4 GM/DL (32-36); Mean Corpuscular Volume 88.8 FL (87-102); Monocytes % 13.3 % (1.7-12.7); Platelet Count 238 T/CUMM (130-400); Red Blood Count 4.92 MC/CUMM (3.8-5.5); Red Cell Distribution Width 13.6 % (9.3-17.3); White Blood Count 4.8 T/CUMM (4-12)
[2021-11-01] MEDS: ONDANSETRON 4 MG/2 ML VIAL IV PRN (05:29)
[2021-11-01 05:42] LABS: Alanine Aminotransferase 321 U/L (16-61); Albumin 3.1 G/DL (3.4-5.0); Alkaline Phosphatase 128 U/L (45-117); Aspartate Amino Transferase 97 U/L (0-37); Bilirubin,Total < 0.39 MG/DL (0.20-1.00); Blood Urea Nitrogen 13 MG/DL (7-18); Calcium 8.4 MG/DL (8.5-10.1); Carbon Dioxide 27 MMOL/L (21-32); Estimated Glom Filtration Rate 126 ML/MIN; Glucose 104 MG/DL (74-106); Osmolality,Calculated 274.7 MOS/KG (273-304); Potassium 3.5 MMOL/L (3.5-5.1); Sodium 138 MMOL/L (136-145)
[2021-11-01] MEDS: metroNIDAZOLE INJ 500 MG/100 ML PREMIX IV SCH ×3 (06:26→22:14)
[2021-11-01] MEDS: amLODIPine 10 MG TABLET PO SCH (08:35)
[2021-11-01] MEDS: METOPROLOL TARTRATE 25 MG TABLET PO SCH ×2 (08:35→20:16)
[2021-11-01] MEDS: PANTOPRAZOLE 40 MG VIAL IV SCH ×2 (08:36→20:16)
[2021-11-01] MEDS: METOCLOPRAMIDE 10 MG/2 ML VIAL IV SCH ×2 (12:20→17:26)
[2021-11-01] MEDS: LORazepam 2 MG/1 ML VIAL IV PRN ×3 (12:53→22:14)
[2021-11-01] MEDS: LEVOFLOXACIN INJ 750 MG/150 ML PREMIX IV SCH (14:28)
[2021-11-02] MEDS: METOCLOPRAMIDE 10 MG/2 ML VIAL IV SCH ×2 (00:13→05:57)
[2021-11-02] MEDS: DEXT 5% NACL 0.45% KCL 20 MEQ 20 MEQ/1,000 ML BAG IV SCH (03:10)
[2021-11-02 05:30] LABS: Basophils % 0.5 % (0.0-0.8); Eosinophils # 0.2 10*3/uL (0.0-0.87); Eosinophils % 3.5 % (0.00-10.9); Hematocrit 45.6 VOL% (42.0-52.0); Hemoglobin 15.4 GM/DL (14.0-18.0); Immature Granulocytes % 0.7 %; Immature Granulocytes Absolute 0.04 #; Lymphocytes # 2.2 10*3/uL (1.4-4.0); Lymphocytes % 39.9 % (21.2-54.2); Mean Corpuscular HGB Conc 33.8 GM/DL (32-36); Mean Corpuscular Volume 87.7 FL (87-102); Mean Platelet Volume 10.1 FL (9.6-12.0); Monocytes % 13.2 % (1.7-12.7); Neutrophils % 42.2 % (38.7-73.9); Platelet Count 260 T/CUMM (130-400); Red Cell Distribution Width 13.3 % (9.3-17.3); White Blood Count 5.5 T/CUMM (4-12)
[2021-11-02 05:49] LABS: Calcium 8.8 MG/DL (8.5-10.1); Osmolality,Calculated 272.8 MOS/KG (273-304)
[2021-11-02] MEDS: metroNIDAZOLE INJ 500 MG/100 ML PREMIX IV SCH (06:00)
[2021-11-02] MEDS: METOPROLOL TARTRATE 25 MG TABLET PO SCH (09:01)
[2021-11-02] MEDS: amLODIPine 10 MG TABLET PO SCH (09:01)
[2021-11-02] MEDS: PANTOPRAZOLE 40 MG VIAL IV SCH (09:40)
[2021-11-02] MEDS ORDERED: PANTOPRAZOLE 40 MG TABLET PO SCH (10:00)
== END 2021-11-02 11:10 | disposition home or self-care (01) | DRG 370 ==
LOC: N.ED 09:04 → SUATTDRO 13:36 → N.EDINP 13:36 → N.CC 15:38
PROVIDERS: ADMIT Internal Medicine; ATTEND Internal Medicine Geriatric Medicine

== ENCOUNTER 2021-11-03 19:25 | Observation (INO) ==
[2021-11-03 20:01] LABS: Basophils % 0.4 % (0.0-0.8); Eosinophils # 0.2 10*3/uL (0.0-0.87); Eosinophils % 2.1 % (0.00-10.9); Hematocrit 42.5 VOL% (42.0-52.0); Hemoglobin 14.4 GM/DL (14.0-18.0); Immature Granulocytes % 0.8 %; Immature Granulocytes Absolute 0.06 #; Lymphocytes # 3.1 10*3/uL (1.4-4.0); Lymphocytes % 39.8 % (21.2-54.2); Mean Corpuscular HGB Conc 33.9 GM/DL (32-36); Mean Corpuscular Volume 88.4 FL (87-102); Mean Platelet Volume 10.1 FL (9.6-12.0); Monocytes # 1.1 10*3/uL (0.11-0.8); Monocytes % 14.2 % (1.7-12.7); Neutrophils % 42.7 % (38.7-73.9); Platelet Count 254 T/CUMM (130-400); Red Blood Count 4.81 MC/CUMM (3.8-5.5); Red Cell Distribution Width 13.9 % (9.3-17.3); White Blood Count 7.7 T/CUMM (4-12)
[2021-11-03 20:22] LABS: Albumin 4.1 G/DL (3.4-5.0); Bilirubin,Total 0.4 MG/DL (0.20-1.00); Calcium 9.1 MG/DL (8.5-10.1); Osmolality,Calculated 280.3 MOS/KG (273-304); Potassium 3.6 MMOL/L (3.5-5.1); Total Protein 7.5 G/DL (6.4-8.2)
[2021-11-03] MEDS ORDERED: ASPIRIN EC 325 MG TABLET PO STA (20:29)
[2021-11-03] MEDS ORDERED: NITROGLYCERIN SL 0.4 MG TABLET SL STA (20:29)
[2021-11-03] MEDS ORDERED: ONDANSETRON 4 MG/2 ML VIAL IV STA (21:40)
[2021-11-03] MEDS ORDERED: MORPHINE 2 MG/1 ML SYRINGE IV STA (21:40)
[2021-11-03] MEDS ORDERED: ONDANSETRON 4 MG/2 ML VIAL ONE (21:41)
[2021-11-03] MEDS ORDERED: fentaNYL 100 MCG/2 ML VIAL IV STA (22:41)
[2021-11-03] MEDS ORDERED: diphenhydrAMINE 50 MG/1 ML VIAL IV STA (22:58)
[2021-11-03] MEDS ORDERED: methylPREDNISolone SOD SUC 125 MG/2 ML VIAL IV STA (22:58)
[2021-11-03 23:04] LABS: Barbiturates Screen,Urine Negative (Negative); Benzodiazepines Screen,Urine Negative (Negative); Cannabinoid Screen,Urine Negative (Negative); Opiate Screen,Urine Negative (Negative); Phencyclidine Screen,Urine Negative (Negative)
[2021-11-04] MEDS ORDERED: LABETALOL 20 MG/4 ML SYRINGE IV STA (00:01)
[2021-11-04] MEDS ORDERED: hydrALAZINE 20 MG/1 ML VIAL IV STA (01:02)
[2021-11-04] MEDS ORDERED: DEXTROSE 10% 250 ML BAG IV PRN (01:51)
[2021-11-04] MEDS ORDERED: NICOTINE 21 MG/24 HR PATCH TRANSDERM PRN (01:51)
[2021-11-04] MEDS ORDERED: GLUCAGON 1 MG VIAL IM PRN (01:51)
[2021-11-04] MEDS ORDERED: MORPHINE 2 MG/1 ML SYRINGE IV PRN (01:51)
[2021-11-04] MEDS ORDERED: ONDANSETRON 4 MG/2 ML VIAL IV PRN (01:51)
[2021-11-04] MEDS ORDERED: hydrALAZINE 20 MG/1 ML VIAL IV PRN (01:51)
[2021-11-04] MEDS ORDERED: ACETAMINOPHEN 325 MG TABLET PO PRN (01:51)
[2021-11-04] MEDS ORDERED: ALUM/MAG/SIMETH/LIDO VISC 1:1 30 ML BOTTLE PO ONE (02:16)
[2021-11-04 06:20] LABS: VLDL Cholesterol 13.6 MG/DL
[2021-11-04] MEDS ORDERED: amLODIPine 10 MG TABLET PO SCH (09:00)
[2021-11-04] MEDS ORDERED: METOPROLOL TARTRATE 25 MG TABLET PO SCH (09:00)
[2021-11-04] MEDS ORDERED: ASPIRIN EC 325 MG TABLET PO SCH (09:00)
[2021-11-04] MEDS ORDERED: PANTOPRAZOLE 40 MG TABLET PO SCH (09:00)
[2021-11-04 13:14] VITALS: BP 154/104
== END 2021-11-04 14:25 | disposition home or self-care (01) ==
LOC: N.ED 19:25 → N.EDINP 19:25 → N.TELES 11-04 02:11
PROVIDERS: ADMIT Internal Medicine; ATTEND Internal Medicine

== ENCOUNTER 2021-11-27 11:55 | Inpatient (IN) ==
[2021-11-27] MEDS ORDERED: ONDANSETRON 4 MG/2 ML VIAL IV STA ×2 (12:29→15:36)
[2021-11-27] MEDS ORDERED: MECLIZINE 25 MG TABLET PO STA (12:29)
[2021-11-27] MEDS ORDERED: hydrALAZINE 20 MG/1 ML VIAL IV STA ×2 (12:34→16:06)
[2021-11-27 13:18] LABS: Basophils % 0.8 % (0.0-0.8); Eosinophils % 0.2 % (0.00-10.9); Hematocrit 41.1 VOL% (42.0-52.0); Hemoglobin 13.9 GM/DL (14.0-18.0); Immature Granulocytes % 0.6 %; Immature Granulocytes Absolute 0.03 #; Lymphocytes % 19.4 % (21.2-54.2); Mean Corpuscular HGB Conc 33.8 GM/DL (32-36); Mean Corpuscular Volume 88.2 FL (87-102); Mean Platelet Volume 9.9 FL (9.6-12.0); Monocytes # 0.5 10*3/uL (0.11-0.8); Monocytes % 10.3 % (1.7-12.7); Neutrophils % 68.7 % (38.7-73.9); Platelet Count 217 T/CUMM (130-400); Red Blood Count 4.66 MC/CUMM (3.8-5.5); Red Cell Distribution Width 14.2 % (9.3-17.3); White Blood Count 5.3 T/CUMM (4-12)
[2021-11-27 13:59] LABS: Calcium 9.3 MG/DL (8.5-10.1); Osmolality,Calculated 285.7 MOS/KG (273-304); Potassium 3.5 MMOL/L (3.5-5.1)
[2021-11-27 14:09] LABS: Barbiturates Screen,Urine Negative (Negative); Benzodiazepines Screen,Urine Negative (Negative); Cannabinoid Screen,Urine Negative (Negative); Opiate Screen,Urine Negative (Negative); Phencyclidine Screen,Urine Negative (Negative)
[2021-11-27] MEDS ORDERED: amLODIPine 5 MG TABLET PO STA (14:27)
[2021-11-27] MEDS ORDERED: LABETALOL 100 MG/20 ML VIAL IV STA (14:48)
[2021-11-27] MEDS ORDERED: MORPHINE 2 MG/1 ML SYRINGE IV STA (15:36)
[2021-11-27 15:38] VITALS: BP 195/145
[2021-11-27] MEDS ORDERED: niCARdipine INJ 25 MG in SODIUM CHLORIDE 0.9% 240 ML IV PRN (15:40)
[2021-11-27] MEDS ORDERED: DOCUSATE SODIUM 100 MG CAPSULE PO PRN (16:06)
[2021-11-27] MEDS ORDERED: ONDANSETRON 4 MG/2 ML VIAL IV PRN (16:06)
[2021-11-27] MEDS ORDERED: ALBUTEROL/IPRATROPIUM 3 ML NEB RESP TX PRN (16:06)
[2021-11-27] MEDS ORDERED: ACETAMINOPHEN 325 MG TABLET PO PRN (16:06)
[2021-11-27] MEDS ORDERED: NICOTINE 21 MG/24 HR PATCH TRANSDERM PRN (16:06)
[2021-11-27] MEDS ORDERED: LACTULOSE 20 GM/30 ML UDCUP PO PRN (16:06)
[2021-11-27] MEDS ORDERED: ALBUTEROL 2.5 MG/3 ML NEB RESP TX PRN (16:06)
[2021-11-27] MEDS ORDERED: hydrALAZINE 20 MG/1 ML VIAL IV PRN (16:06)
[2021-11-27] MEDS ORDERED: ALUMINUM/MAGNES/SIMETH MAX STR 30 ML UDCUP PO PRN (16:06)
[2021-11-27 16:37] LABS: Thyroid Stimulating Hormone 0.588 uIU/ml (0.358-3.74)
[2021-11-27] MEDS ORDERED: ACETAMINOPHEN 500 MG TABLET PO ONE (16:43)
[2021-11-27] MEDS ORDERED: FUROSEMIDE 40 MG/4 ML VIAL IV ONE (16:44)
[2021-11-27] MEDS: ISOSORBIDE MONONITRATE 30 MG TABLET PO SCH (16:51)
[2021-11-27] MEDS: hydroCHLOROthiazide 25 MG TABLET PO SCH (16:51)
[2021-11-27] MEDS ORDERED: MAGNESIUM SULF RIDER 4 GM/100 ML PREMIX IV PRN (16:54)
[2021-11-27] MEDS ORDERED: MAGNESIUM SULF RIDER 2 GM/50 ML PREMIX IV PRN (16:54)
[2021-11-27] MEDS ORDERED: DICYCLOMINE 20 MG TABLET PO PRN (17:59)
[2021-11-27] MEDS ORDERED: ENOXAPARIN 40 MG/0.4 ML SYRINGE SUBCUT SCH (18:00)
[2021-11-27] MEDS ORDERED: PANTOPRAZOLE 40 MG VIAL IV SCH (18:00)
[2021-11-27] MEDS: traMADol 50 MG TABLET PO PRN (18:09)
[2021-11-27] MEDS ORDERED: PROMETHAZINE INJ 25 MG in SODIUM CHLORIDE 0.9% 50 ML IV PRN (20:00)
[2021-11-27] MEDS: hydrALAZINE 10 MG TABLET PO SCH (20:23)
[2021-11-28] MEDS: traMADol 50 MG TABLET PO PRN ×3 (05:37→12:08)
[2021-11-28 05:57] LABS: Basophils % 0.4 % (0.0-0.8); Eosinophils # 0.1 10*3/uL (0.0-0.87); Eosinophils % 2.5 % (0.00-10.9); Hematocrit 39.2 VOL% (42.0-52.0); Hemoglobin 13.2 GM/DL (14.0-18.0); Immature Granulocytes % 0.2 %; Immature Granulocytes Absolute 0.01 #; Lymphocytes # 1.8 10*3/uL (1.4-4.0); Lymphocytes % 40.8 % (21.2-54.2); Mean Corpuscular HGB Conc 33.7 GM/DL (32-36); Mean Corpuscular Volume 88.9 FL (87-102); Mean Platelet Volume 9.8 FL (9.6-12.0); Monocytes # 0.7 10*3/uL (0.11-0.8); Monocytes % 14.8 % (1.7-12.7); Neutrophils % 41.3 % (38.7-73.9); Platelet Count 200 T/CUMM (130-400); Red Blood Count 4.41 MC/CUMM (3.8-5.5); Red Cell Distribution Width 14.3 % (9.3-17.3); White Blood Count 4.5 T/CUMM (4-12)
[2021-11-28 06:25] LABS: Alanine Aminotransferase 37 U/L (16-61); Albumin 3.3 G/DL (3.4-5.0); Alkaline Phosphatase 98 U/L (45-117); Aspartate Amino Transferase 24 U/L (0-37); Bilirubin,Total < 0.39 MG/DL (0.20-1.00); Blood Urea Nitrogen 10 MG/DL (7-18); Calcium 9.4 MG/DL (8.5-10.1); Carbon Dioxide 29 MMOL/L (21-32); Chloride 100 MMOL/L (98-107); Cholesterol 173 MG/DL (50-200); Estimated Glom Filtration Rate 122 ML/MIN; Glucose 106 MG/DL (74-106); HDL Cholesterol 59 MG/DL (40-60); Osmolality,Calculated 271.8 MOS/KG (273-304); Potassium 2.8 MMOL/L (3.5-5.1); Risk Ratio 2.93; Sodium 137 MMOL/L (136-145); Total Protein 7.2 G/DL (6.4-8.2); Triglycerides 105 MG/DL (2-150)
[2021-11-28] MEDS: POTASSIUM CHLORIDE 20 MEQ TABLET PO SCH ×4 (08:10→14:18)
[2021-11-28] MEDS: hydroCHLOROthiazide 25 MG TABLET PO SCH (08:10)
[2021-11-28] MEDS: hydrALAZINE 10 MG TABLET PO SCH (08:10)
[2021-11-28] MEDS: ISOSORBIDE MONONITRATE 30 MG TABLET PO SCH (08:11)
[2021-11-28] MEDS ORDERED: ASPIRIN EC 325 MG TABLET PO SCH (09:00)
[2021-11-28] MEDS ORDERED: PANTOPRAZOLE 40 MG TABLET PO SCH (09:00)
[2021-11-28] MEDS ORDERED: MECLIZINE 25 MG TABLET PO PRN (09:40)
[2021-11-28 14:18] LABS: Calcium 9.6 MG/DL (8.5-10.1); Potassium 3.4 MMOL/L (3.5-5.1)
== END 2021-11-28 14:33 | disposition home or self-care (01) | DRG 305 ==
LOC: N.ED 11:55 → SUATTDRO 16:06 → N.EDINP 16:06 → N.ICU 16:46
PROVIDERS: ADMIT Internal Medicine; ATTEND Internal Medicine

== ENCOUNTER 2022-07-06 12:47 | Observation (INO) ==
[2022-07-06] MEDS ORDERED: ASPIRIN 325 MG TABLET PO STA (13:04)
[2022-07-06] MEDS ORDERED: METOPROLOL TARTRATE 5 MG/5 ML VIAL IV STA ×2 (13:04→14:43)
[2022-07-06] MEDS ORDERED: hydrALAZINE 20 MG/1 ML VIAL IV STA ×2 (13:05→14:43)
[2022-07-06 13:32] LABS: Basophils # 0.1 10*3/uL (0.0-0.2); Basophils % 1.5 % (0.0-0.8); Eosinophils # 0.1 10*3/uL (0.0-0.87); Eosinophils % 1.8 % (0.00-10.9); Hematocrit 45.3 VOL% (42.0-52.0); Hemoglobin 15.1 GM/DL (14.0-18.0); Immature Granulocytes % 0.3 %; Immature Granulocytes Absolute 0.01 #; Lymphocytes # 1.2 10*3/uL (1.4-4.0); Lymphocytes % 36.5 % (21.2-54.2); Mean Corpuscular HGB Conc 33.3 GM/DL (32-36); Mean Corpuscular Volume 90.6 FL (87-102); Mean Platelet Volume 10.2 FL (9.6-12.0); Monocytes # 0.4 10*3/uL (0.11-0.8); Monocytes % 12.5 % (1.7-12.7); Neutrophils % 47.4 % (38.7-73.9); Platelet Count 228 T/CUMM (130-400); Red Cell Distribution Width 14.1 % (9.3-17.3); White Blood Count 3.4 T/CUMM (4-12)
[2022-07-06 13:43] LABS: Bilirubin,Urine Negative (Negative); Blood, Urine Negative (Negative); Glucose,Urine (UA) Negative (Negative); Ketones,Urine Negative (Negative); Mucus,Urine Occasional /LPF (Occasional); Nitrite,Urine Negative (Negative); Protein,Urine Negative (Negative); RBC,Urine 1 /HPF (0-4); Squamous Epithelial Cell,Urine Occasional /HPF (0-10); Urine Appearance Clear (Clear); Urine Color Yellow (Yellow); Urine Specific Gravity 1.025 (1.001-1.035); Urine Urobilinogen 0.2 eU/dL (<2.0)
[2022-07-06 13:52] LABS: Barbiturates Screen,Urine Negative (Negative); Benzodiazepines Screen,Urine Negative (Negative); Cannabinoid Screen,Urine Negative (Negative); Opiate Screen,Urine Negative (Negative); Phencyclidine Screen,Urine Negative (Negative)
[2022-07-06 13:53] LABS: Alanine Aminotransferase 34 U/L (16-61); Alkaline Phosphatase 106 U/L (45-117); Aspartate Amino Transferase 25 U/L (0-37); Bilirubin,Total < 0.39 MG/DL (0.20-1.00); Blood Urea Nitrogen 11 MG/DL (7-18); Calcium 8.9 MG/DL (8.5-10.1); Carbon Dioxide 28 MMOL/L (21-32); Chloride 108 MMOL/L (98-107); Glucose 99 MG/DL (74-106); Osmolality,Calculated 277.4 MOS/KG (273-304); Potassium 3.9 MMOL/L (3.5-5.1); Sodium 140 MMOL/L (136-145)
[2022-07-06] MEDS ORDERED: ONDANSETRON 4 MG/2 ML VIAL ONE (14:13)
[2022-07-06] MEDS ORDERED: MORPHINE 2 MG/1 ML SYRINGE ONE (14:13)
[2022-07-06] MEDS ORDERED: MORPHINE 2 MG/1 ML SYRINGE IV STA (14:14)
[2022-07-06] MEDS ORDERED: ONDANSETRON 4 MG/2 ML VIAL IV STA (14:14)
[2022-07-06] MEDS ORDERED: amLODIPine 5 MG TABLET PO STA (14:27)
[2022-07-06] MEDS ORDERED: NITROGLYCERIN SL 0.4 MG TABLET SL PRN (14:50)
[2022-07-06] MEDS ORDERED: hydrALAZINE 20 MG/1 ML VIAL IV PRN ×2 (14:50→16:02)
[2022-07-06] MEDS ORDERED: ENOXAPARIN 40 MG/0.4 ML SYRINGE SUBCUT SCH (15:00)
[2022-07-06] MEDS ORDERED: NICOTINE 21 MG/24 HR PATCH TRANSDERM PRN (15:03)
[2022-07-06 15:26] LABS: Risk Ratio 3.28; Thyroid Stimulating Hormone 1.1 uIU/ml (0.358-3.74); VLDL Cholesterol 14.8 MG/DL
[2022-07-06] MEDS: DOCUSATE SODIUM 100 MG CAPSULE PO PRN (16:50)
[2022-07-06] MEDS: ACETAMINOPHEN 325 MG TABLET PO PRN (16:51)
[2022-07-06] MEDS: KETOROLAC 30 MG/1 ML VIAL IV PRN ×2 (16:53→22:53)
[2022-07-06] MEDS: LOSARTAN 50 MG TABLET PO SCH (22:53)
[2022-07-07] MEDS: ACETAMINOPHEN 325 MG TABLET PO PRN ×2 (02:21→12:14)
[2022-07-07 05:18] LABS: Basophils # 0.1 10*3/uL (0.0-0.2); Basophils % 1.4 % (0.0-0.8); Eosinophils # 0.2 10*3/uL (0.0-0.87); Eosinophils % 4.2 % (0.00-10.9); Hematocrit 44.2 VOL% (42.0-52.0); Hemoglobin 15.1 GM/DL (14.0-18.0); Immature Granulocytes % 0.3 %; Immature Granulocytes Absolute 0.01 #; Lymphocytes # 1.2 10*3/uL (1.4-4.0); Lymphocytes % 34.2 % (21.2-54.2); Mean Corpuscular HGB Conc 34.2 GM/DL (32-36); Mean Corpuscular Volume 89.3 FL (87-102); Mean Platelet Volume 10.5 FL (9.6-12.0); Monocytes # 0.6 10*3/uL (0.11-0.8); Monocytes % 15.8 % (1.7-12.7); Neutrophils % 44.1 % (38.7-73.9); Platelet Count 215 T/CUMM (130-400); Red Blood Count 4.95 MC/CUMM (3.8-5.5); Red Cell Distribution Width 13.7 % (9.3-17.3); White Blood Count 3.5 T/CUMM (4-12)
[2022-07-07 05:35] LABS: Calcium 8.3 MG/DL (8.5-10.1); Osmolality,Calculated 276.5 MOS/KG (273-304); Potassium 3.5 MMOL/L (3.5-5.1)
[2022-07-07 06:11] LABS: Eosinophils 5 % (0-10); Lymphocytes 36 % (20-55); Total Cells Counted 100
[2022-07-07 06:13] LABS: Microcytosis Slight; Platelet Estimate Normal; Target Cells Slight
[2022-07-07] MEDS: KETOROLAC 30 MG/1 ML VIAL IV PRN (08:07)
[2022-07-07] MEDS ORDERED: amLODIPine 10 MG TABLET PO SCH (09:00)
[2022-07-07] MEDS ORDERED: PANTOPRAZOLE 40 MG TABLET PO SCH (09:00)
[2022-07-07] MEDS: DOCUSATE SODIUM 100 MG CAPSULE PO PRN (12:14)
[2022-07-07] MEDS: LOSARTAN 50 MG TABLET PO SCH (12:14)
[2022-07-07 15:32] VITALS: BP 151/94
== END 2022-07-07 19:16 | disposition home or self-care (01) ==
LOC: N.EDINP 12:47 → N.ED 12:47 → SUATTDRO 14:44 → N.2W 16:00
PROVIDERS: ADMIT Internal Medicine; ATTEND Internal Medicine

== ENCOUNTER 2022-09-05 16:57 | Observation (INO) ==
[2022-09-05] MEDS ORDERED: FUROSEMIDE 40 MG/4 ML VIAL IV STA (18:32)
[2022-09-05] MEDS ORDERED: MORPHINE 2 MG/1 ML SYRINGE IV STA (18:32)
[2022-09-05] MEDS ORDERED: ONDANSETRON 4 MG/2 ML VIAL IV STA (18:32)
[2022-09-05] MEDS ORDERED: hydrALAZINE 20 MG/1 ML VIAL IV STA (18:32)
[2022-09-05] MEDS ORDERED: ASPIRIN 325 MG TABLET PO STA (18:32)
[2022-09-05] MEDS ORDERED: NITROGLYCERIN 2% OINT 1 INCH/GM PACK TOP STA (18:32)
[2022-09-05 18:33] LABS: Basophils # 0.1 10*3/uL (0.0-0.2); Basophils % 0.8 % (0.0-0.8); Eosinophils # 0.1 10*3/uL (0.0-0.87); Eosinophils % 0.8 % (0.00-10.9); Hematocrit 43.8 VOL% (42.0-52.0); Immature Granulocytes % 0.2 %; Immature Granulocytes Absolute 0.01 #; Lymphocytes # 1.5 10*3/uL (1.4-4.0); Lymphocytes % 23.2 % (21.2-54.2); Mean Corpuscular HGB Conc 34.2 GM/DL (32-36); Mean Corpuscular Volume 87.1 FL (87-102); Mean Platelet Volume 11.3 FL (9.6-12.0); Monocytes # 0.8 10*3/uL (0.11-0.8); Monocytes % 13.3 % (1.7-12.7); Neutrophils % 61.7 % (38.7-73.9); Platelet Count 215 T/CUMM (130-400); Red Blood Count 5.03 MC/CUMM (3.8-5.5); Red Cell Distribution Width 13.6 % (9.3-17.3)
[2022-09-05 18:35] LABS: Albumin 4.3 G/DL (3.4-5.0); Bilirubin,Total 0.7 MG/DL (0.20-1.00); Calcium 9.8 MG/DL (8.5-10.1); Osmolality,Calculated 279.4 MOS/KG (273-304); Potassium 3.3 MMOL/L (3.5-5.1); Total Protein 8.3 G/DL (6.4-8.2)
[2022-09-05 18:39] LABS: INR 0.9; PT Patient Result 10.1 SECS (10.1-12.1); Partial Thromboplastin Time 21.4 SECS (23.7-32.9)
[2022-09-05 19:30] LABS: Barbiturates Screen,Urine Negative (Negative); Benzodiazepines Screen,Urine Negative (Negative); Cannabinoid Screen,Urine Negative (Negative); Opiate Screen,Urine Negative (Negative); Phencyclidine Screen,Urine Negative (Negative)
[2022-09-05] MEDS ORDERED: LABETALOL 20 MG/4 ML SYRINGE IV STA (19:50)
[2022-09-05] MEDS ORDERED: ACETAMINOPHEN 325 MG TABLET PO PRN (20:50)
[2022-09-05] MEDS ORDERED: LABETALOL 20 MG/4 ML SYRINGE IV PRN (20:50)
[2022-09-05] MEDS ORDERED: MORPHINE 2 MG/1 ML SYRINGE IV PRN (20:50)
[2022-09-05] MEDS ORDERED: NICOTINE 21 MG/24 HR PATCH TRANSDERM PRN (20:50)
[2022-09-05] MEDS ORDERED: CLORAZEPATE 3.75 MG TABLET PO PRN (20:50)
[2022-09-05] MEDS ORDERED: POTASSIUM CHLORIDE 20 MEQ TABLET PO ONE (20:50)
[2022-09-06] MEDS ORDERED: KETOROLAC 30 MG/1 ML VIAL IV ONE (00:31)
[2022-09-06] MEDS: ONDANSETRON 4 MG/2 ML VIAL IV PRN ×2 (04:58→09:11)
[2022-09-06 05:32] LABS: Calcium 9.1 MG/DL (8.5-10.1); Osmolality,Calculated 278.5 MOS/KG (273-304); Potassium 3.1 MMOL/L (3.5-5.1)
[2022-09-06] MEDS ORDERED: POTASSIUM CHLORIDE RIDER 10 MEQ/100 ML PREMIX IV PRN (06:35)
[2022-09-06] MEDS ORDERED: POTASSIUM CHLORIDE 20 MEQ TABLET PO ONE (08:24)
[2022-09-06] MEDS ORDERED: INFLUENZA VIRUS VACCINE 0.5 ML SYRINGE IM ONE (09:00)
[2022-09-06] MEDS ORDERED: LOSARTAN 50 MG TABLET PO SCH (09:00)
[2022-09-06] MEDS ORDERED: amLODIPine 10 MG TABLET PO SCH (09:00)
[2022-09-06] MEDS ORDERED: ENOXAPARIN 40 MG/0.4 ML SYRINGE SUBCUT SCH (09:00)
[2022-09-06 11:22] VITALS: BP 119/84
== END 2022-09-06 15:29 | disposition home or self-care (01) ==
LOC: N.ED 16:57 → N.2W 16:57
PROVIDERS: ADMIT Internal Medicine; ATTEND Internal Medicine